=== PATIENT | female | born 1950 | race Asian ===

== ENCOUNTER 2022-06-28 01:06 | Emergency (ER) | payer MEDICARE, OTHER ==
[~2022-06-28] VITALS: Ht 152.4 cm; Wt 63.5 kg
[2022-06-28 01:08] VITALS: BP 206/130
[2022-06-28 01:23] LABS: BASOPHILS # (AUTO) 0.1 10^3/uL (0.0-0.1); BASOPHILS % (AUTO) 1 % (0-10); EOSINOPHILS # (AUTO) 0.1 10^3/uL (0.0-0.3); EOSINOPHILS % (AUTO) 1 % (0-10); HEMATOCRIT 40 % (35-52); HEMOGLOBIN 12.9 g/dL (11.5-16.0); LYMPHOCYTES # (AUTO) 1.8 10^3/uL (1.0-4.0); LYMPHOCYTES % (AUTO) 26 % (12-44); MEAN CORPUSCULAR HEMOGLOBIN 22 pg (25-34); MEAN CORPUSCULAR HGB CONC 32 g/dL (32-36); MEAN CORPUSCULAR VOLUME 70 fL (80-99); MEAN PLATELET VOLUME 8.6 fL (9.0-12.2); MONOCYTES # (AUTO) 0.7 10^3/uL (0.0-1.0); MONOCYTES % (AUTO) 9 % (0-12); NEUTROPHILS # (AUTO) 4.4 10^3/uL (1.8-7.8); NEUTROPHILS % (AUTO) 63 % (42-75); PLATELET COUNT 349 10^3/uL (130-400); WHITE BLOOD COUNT 7.1 10^3/uL (4.3-11.0)
--- NOTE | 2022-06-28 01:24 | ED Fall/Injury ---
General Stated Complaint: FALL Source: patient (SPEECH IS DIFFICULT TO UNDERSTAND AT TIMES. ) History of Present Illness Date Seen by Provider: Jun 28, 2022 Time Seen by Provider: 01:08 Initial Comments PT ARRIV[facility] VIA EMS [facility]--PT LIVES IN [place], [place] PT [facility] LAND[facility] ON HER RIGHT SIDE C/O PAIN TO RIGHT SHOULDER , UPPER ARM AND COLLAR BONE DID HIT HER HEAD, BUT DENIES ANY LOSS OF CONSCIOUSNESS DENIES ANY NECK OR BACK PAIN DENIES ANY PARESTHESIAS OR MOTOR DEFICITS DENIES ANY HIP OR LEG PAIN PT IS ON 81 MG ASPIRIN SHE IS DIABETIC, HAS HTN, HX OF CVA, USES AN INHALER SHE DENIES SMOKING, ALCOHOL OR DRUG USE PCP:DR. BELL IN [place], [place] Allergies and Home Medications Allergies Coded Allergies: codeine (Verified Allergy, Unknown, 06/28/22) Review of Systems Review of Systems Constitutional: no symptoms reported Eyes: No Symptoms Reported Ears, Nose, Mouth, Throat: no symptoms reported Respiratory: no symptoms reported Cardiovascular: no symptoms reported Gastrointestinal: no symptoms reported Genitourinary: no symptoms reported Musculoskeletal: see HPI Skin: no symptoms reported Psychiatric/Neurological: No Symptoms Reported Past Wilbcno-Fowawc-Haqfoc Hx Patient Social History Tobacco Use?: No Use of E-Cig and/or Vaping dev: No Substance use?: No Alcohol Use?: No Past Medical History Respiratory: Yes (USES AN INHALER--PT UNABLE TO STATE WHAT LUNG PROBLEM SHE HAS) Cardiac: Yes High Cholesterol, Hypertension 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 oz. kg; BMI Method: General Appearance: WD/WN, no apparent distress HEENT: PERRL/EOMI Neck: non-tender, full range of motion, supple, normal inspection Cardiovascular: regular rate, rhythm, no murmur Respiratory: normal breath sounds, no respiratory distress, no accessory muscle use, other (RIGHT UPPER CHEST TENDERNESS. NO CREPITANCE OR SUB Q AIR. ) Gastrointestinal: non tender, soft Back: other (RIGHT UPPER BACK/SCAPULAR /TRAPEZIUS TENDERNESS. ) Extremities: normal capillary refill, other (TENDERNESS TO RIGHT MID AND UPPER HUMERUS, RIGHT SHOULDER AND ENTIRE RIGHT CLAVICLE. NO DEFORMITY. 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, no motor/sensory deficits, alert, normal mood/affect, oriented x 3 Skin: normal color (DARK SKINNED), warm/dry; No ecchymosis Aleksandra Coma Score Best Eye Response: (4) Open Spontaneously Best Verbal Response: (5) Oriented Best Motor Response: (6) Obeys Commands [place] Total: 15 Progress/Results/Core Measures Results/Orders Lab Results Laboratory Tests Test 06/28/22 01:17 Range/Units White Blood Count 7.1 4.3-11.0 10^3/uL Red Blood Count 5.76 H 3.80-5.11 10^6/uL Hemoglobin 12.9 11.5-16.0 g/dL Hematocrit 40 35-52 % Mean Corpuscular Volume 70 L 80-99 fL Mean Corpuscular Hemoglobin 22 L 25-34 pg Mean Corpuscular Hemoglobin Concent 32 32-36 g/dL Red Cell Distribution Width 15.5 H 10.0-14.5 % Platelet Count 349 130-400 10^3/uL Mean Platelet Volume 8.6 L 9.0-12.2 fL Immature Granulocyte % (Auto) 0 % Neutrophils (%) (Auto) 63 42-75 % Lymphocytes (%) (Auto) 26 12-44 % Monocytes (%) (Auto) 9 0-12 % Eosinophils (%) (Auto) 1 0-10 % Basophils (%) (Auto) 1 0-10 % Neutrophils # (Auto) 4.4 1.8-7.8 10^3/uL Lymphocytes # (Auto) 1.8 1.0-4.0 10^3/uL Monocytes # (Auto) 0.7 0.0-1.0 10^3/uL Eosinophils # (Auto) 0.1 0.0-0.3 10^3/uL Basophils # (Auto) 0.1 0.0-0.1 10^3/uL Immature Granulocyte # (Auto) 0.0 0.0-0.1 10^3/uL Prothrombin Time 13.0 12.2-14.7 SEC INR Comment 0.9 0.8-1.4 Activated Partial Thromboplast Time 33 24-35 SEC Sodium Level 139 135-145 MMOL/L Potassium Level 4.0 3.6-5.0 MMOL/L Chloride Level 107 98-107 MMOL/L Carbon Dioxide Level 18 L 21-32 MMOL/L Anion Gap 14 5-14 MMOL/L Blood Urea Nitrogen 17 7-18 MG/DL Creatinine 0.79 0.60-1.30 MG/DL Estimat Glomerular Filtration Rate 78 BUN/Creatinine Ratio 22 Glucose Level 127 H 70-105 MG/DL Calcium Level 9.5 8.5-10.1 MG/DL Corrected Calcium 9.3 8.5-10.1 MG/DL Total Bilirubin 0.4 0.1-1.0 MG/DL Aspartate Amino Transf (AST/SGOT) 23 5-34 U/L Alanine Aminotransferase (ALT/SGPT) 20 0-55 U/L Alkaline Phosphatase 79 40-136 U/L Total Protein 8.3 H 6.4-8.2 GM/DL Albumin 4.3 3.2-4.5 GM/DL Serum Alcohol < 10 <10 MG/DL My Orders Orders - MARCK ERICKSON DO Ct Head/Cervical Spine Wo (06/28/22 01:17) Chest 1 View, Ap/Pa Only (06/28/22 01:17) Shoulder, Right, 3 Views (06/28/22 01:17) Humerus, Right, 2 Views (06/28/22 01:17) Alcohol (06/28/22 01:17) Cbc With Automated Diff (06/28/22 01:17) Comprehensive Metabolic Panel (06/28/22 01:17) Protime With Inr (06/28/22 01:17) Partial Thromboplastin Time (06/28/22 01:17) Ketorolac Injection (Toradol Injection) (06/28/22 03:30) Ed Ortho/Other Supplies Order (06/28/22 03:35) Accucheck Stat ONCE (06/28/22 03:37) Rx-Tramadol Hcl (Rx-Ultram) (06/28/22 03:39) Medications Given in ED Current Medications Medications Dose Ordered Sig/Stanton Route Start Time Stop Time Status Last Admin Dose Admin Ketorolac Tromethamine 30 mg ONCE ONCE IVP 06/28/22 03:30 06/28/22 03:31 DC 06/28/22 03:31 30 MG Vital Signs/I&O 06/28/22 01:08 Pulse 72 Resp 18 B/P (MAP) 206/130 (155) Pulse Ox 98 O2 Delivery Room Air Progress Progress Note : Progress Note NO PRIOR VISITS HERE Departure Impression Primary Impression: FALL FROM BAR STOOL Additional Impressions: Closed right clavicular fracture NIDDM Disposition: HOME, SELF-CARE Condition: Stable Departure-Patient Inst. Decision time for Depature: 03:40 Referrals: UNKNOWN (PCP) Primary Care Physician Patient Instructions: Clavicle Fracture, Preventing Falls in Older Adults Add. Discharge Instructions: WEAR SLING AT ALL TIMES ICE TO SORE AREA AT 20 MINUTE INTERVALS FOLLOW UP WITH DR. LI OR WITH ORTHOPEDIC SURGEON OF CHOICE THIS WEEK FOR FURTHER CARE--CALL IN THE MORNING TO SCHEDULE APPOINTMENT. Scripts Tramadol HCl (Tramadol HCl) 50 Mg Tablet 50 MG PO Q6H PRN for PAIN, #20 TAB 0 Refills Prov: MARCK ERICKSON DO 06/28/22 MARCK ERICKSON DO Jun 28, 2022 01:24
[2022-06-28 01:34] LABS: ALBUMIN 4.3 GM/DL (3.2-4.5); CHLORIDE 107 MMOL/L (98-107); SODIUM 139 MMOL/L (135-145)
[2022-06-28 01:35] LABS: CALCIUM 9.5 MG/DL (8.5-10.1)
[2022-06-28 01:36] LABS: GLUCOSE 127 MG/DL (70-105); TOTAL PROTEIN 8.3 GM/DL (6.4-8.2)
[2022-06-28 01:37] LABS: CARBON DIOXIDE 18 MMOL/L (21-32)
[2022-06-28 01:38] LABS: BILIRUBIN,TOTAL 0.4 MG/DL (0.1-1.0)
[2022-06-28 01:40] LABS: ALKALINE PHOSPHATASE 79 U/L (40-136); CREATININE SERUM 0.79 MG/DL (0.60-1.30); GFR ESTIMATED 78
[2022-06-28 01:41] LABS: BUN/CREATININE RATIO 22
[2022-06-28 01:43] LABS: ALANINE AMINOTRANSFERASE 20 U/L (0-55)
[2022-06-28 01:45] LABS: INR 0.9 (0.8-1.4)
[2022-06-28] MEDS ORDERED: KETOROLAC 30 MG/ML VIAL IVP ONE (03:30)
[2022-06-28] MEDS ORDERED: TRM50T PO (03:44)
--- NOTE | 2022-06-28 06:57 | Diagnostic Imaging Report ---
EXAMINATION: Right humerus radiographs, 2 views. COMPARISON: None. HISTORY: 72-year-old female, right humerus pain. FINDINGS: There is no identified acute fracture. There are right acromioclavicular degenerative changes. Right upper quadrant surgical clips likely reflect prior cholecystectomy. There is no identified acute fracture. IMPRESSION: No acute bony abnormality of the right humerus. Dictated by: Dictated on workstation # [id number]
--- NOTE | 2022-06-28 06:58 | Diagnostic Imaging Report ---
EXAMINATION: Right shoulder radiographs, 3 views. COMPARISON: None. HISTORY: 72-year-old female, right shoulder pain. FINDINGS: There are right acromioclavicular degenerative changes. The acromioclavicular joint is normally aligned. The humeral head is normally positioned relative to the glenoid. There is no identified acute fracture. The glenohumeral joint space is well-maintained. IMPRESSION: 1. No acute bony abnormality of the right shoulder. 2. Acromioclavicular degenerative changes. Dictated by: Dictated on workstation # [id number]
--- NOTE | 2022-06-28 07:04 | Diagnostic Imaging Report ---
PROCEDURE: CT head and CT cervical spine without contrast. TECHNIQUE: Multiple contiguous axial images were obtained through the brain and cervical spine without the use of intravenous contrast. Sagittal and coronal reformations through the cervical spine were then performed. Auto Exposure Controls were utilized during the CT exam to meet ALARA standards for radiation dose reduction. DATE: June 26, 2022. COMPARISON: None. INDICATION: 72-year-old female, fall. Head and neck pain. FINDINGS: There is a partially calcified extra-axial lesion adjacent of the high left frontal parietal region which measures 2.3 x 1.3 cm in size on axial image 54. This most likely reflects a meningioma. There are symmetric bilateral basal ganglia calcifications. The ventricles and additional CSF spaces are within normal limits and size and configuration for patient age. There is no identified abnormal extra-axial fluid collection. There is no evidence of acute intracranial hemorrhage. There is no midline shift. There is no identified a skull fracture. There is postoperative related changes in the region of the nose. There is fluid layering in the right sphenoid sinus with bubbly areas of internal lucency. The mastoid air cells and middle ears are well-aerated bilaterally. There is no identified facet joint subluxation or dislocation. There are multilevel facet degenerative changes of the cervical spine. There is no asymmetric widening of the cervical disc spaces. There is chondrocalcinosis and arthritis at the C1-C2 articulation. There are additional disc degenerative changes of the cervical spine. CT is limited for assessment of disc pathology as well as additional non-bony causes of pathology in the spinal canal. There is no identified acute fracture of the cervical spine. Visualized portions of the lung apices are clear. The distal ascending aorta measures up to 4.1 cm in diameter. IMPRESSION: 1. No identified acute intracranial abnormality. 2. Partially calcified extra-axial mass in the left likely reflecting meningioma with mass measurements as above. 3. No identified acute abnormality of the cervical spine. 4. Multilevel degenerative changes of the cervical spine. 5. Aneurysmal dilation of the distal ascending thoracic aorta measuring up to 4.1 cm in diameter. 6. Fluid layering in the right sphenoid sinus which may reflect acute sinusitis. Recommend correlation. Dictated by: Dictated on workstation # [id number]
--- NOTE | 2022-06-28 07:06 | Diagnostic Imaging Report ---
EXAMINATION: Chest radiograph, portable AP view. DATE: 06/28/2022 2:39 AM. INDICATION: 72-year-old female, fall. Chest pain. COMPARISON: None. FINDINGS: The heart size and mediastinal contours are unremarkable. There is no identified pneumothorax. There is no large pleural effusion. There is no identified focal airspace consolidation. IMPRESSION: No identified acute cardiopulmonary abnormality. Dictated by: Dictated on workstation # [id number]
== END 2022-06-28 04:17 | disposition home or self-care (01) ==
LOC: ER 01:08
DX: S42.001A Fracture of unspecified part of right clavicle, initial encounter for closed fracture (principal); E11.9 Type 2 diabetes mellitus without complications; R07.89 Other chest pain; Z88.5 Allergy status to narcotic agent; Z79.82 Long term (current) use of aspirin; W08.XXXA Fall from other furniture, initial encounter; Y92.59 Other trade areas as the place of occurrence of the external cause
CPT/HCPCS: 70450; 71045; 72125; 73030; 73060; 80053; 82947; 85025; 85610; 85730; A4565; G0480; 36415; 80320